=== PATIENT | male | born 1990 | race Caucasian/White ===

== ENCOUNTER 2023-09-13 20:32 | Inpatient (IN) ==
[2023-09-13 22:39] LABS: Basophils # (auto) 0.03 K/uL (0.00-0.20); Basophils % (auto) 0.4 %; Eosinophils # (auto) 0.12 K/uL (0.00-0.50); Eosinophils % (auto) 1.7 %; Hematocrit (blood only) 47.3 % (42.0-52.0); Hemoglobin 15.7 g/dl (14.0-18.0); Immature Granulocytes # (auto) 0.03 K/uL (0.01-0.20); Immature Granulocytes % (auto) 0.4 %; Lymphocytes # (auto) 0.52 K/uL (1.20-3.40); Lymphocytes % (auto) 7.5 %; Mean Corpuscular Hemoglobin 27.4 pg (25.0-34.0); Mean Corpuscular Hgb Conc 33.2 g/dL (32.0-36.0); Mean Corpuscular Volume 82.5 fL (80.0-100.0); Mean Platelet Volume 9.6 fL (9.4-12.4); Monocytes # (auto) 0.57 K/uL (0.11-0.59); Monocytes % (auto) 8.2 %; Neutrophils # (auto) 5.67 K/uL (1.40-6.50); Neutrophils % (auto) 81.8 %; Platelet Count 210 K/uL (130-400); RDW Coefficient of Variation 13.3 % (11.5-14.5); RDW Standard Deviation 39.2 fL (36.4-46.3); Red Blood Count 5.73 M/uL (4.70-6.10); White Blood Count 6.94 K/ul (4.8-10.8)
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
[2023-09-13 22:58] LABS: Albumin Globulin Ratio 1.5 (0.9-2); Albumin Level 4.5 gm/dl (3.4-5.0); BUN Creatinine Ratio 11.1 (10-20); Bilirubin,Total 0.8 mg/dl (0.2-1.0); Calcium 9.1 mg/dl (8.6-10.3); Creatinine Clr Calc Pharmacy 165.1 ml/min; Est GFR (African American) 128.7 ml/min; Potassium 3.8 mmol/L (3.5-5.1); Total Protein 7.5 gm/dl (6.0-8.3)
[2023-09-13] MEDS: SODIUM CHLORIDE 0.9% 1,000 ML IV ONE (23:18)
[2023-09-13] MEDS: HYDROmorphone INJ 1 MG/ML SYRINGE IV STA (23:18)
[2023-09-13] MEDS: ONDANSETRON INJ 2 MG/ML 2 ML VIAL IV STA (23:18)
--- NOTE | 2023-09-14 01:17 | Ultrasound Report ---
Exam(s): US GALLBLADDER EXAM: US Abdomen Limited, Right Upper Quadrant CLINICAL HISTORY: Reason for exam: abd pain fever. TECHNIQUE: Real-time ultrasound of the right upper quadrant with image documentation. COMPARISON: 09/13/2023. FINDINGS: Liver: 17.5 cm length. Echogenic/fatty. No mass. No intrahepatic bile duct dilation. Gallbladder: Distended gallbladder 12.1 cm length. Multiple small mobile gallstones and sludge. No gallbladder wall thickening or pericholecystic fluid. Cannot assess for sonographic Al's sign as patient was medicated. Common bile duct: Common bile duct 4.8 mm diameter. No dilatation. Pancreas: Obscured by bowel gas. Right kidney: Limited by bowel gas. 3.7 mm possible nonobstructing calculus in the lower pole. Poorly visualized probable cyst. IMPRESSION: No significant interval change. Poorly characterized right kidney. Electronically signed by: Asael Ramos M.D. 09/14/23 01:17 AM
[2023-09-14 01:36] LABS: Appearance Urine Clear (Clear); Bilirubin Urine Negative (Negative); Blood Urine Negative (Negative); Color Urine Yellow; Glucose Urine UA Negative (Negative); Ketones Urine Negative (Negative); Leukocyte Esterase Urine Negative (Negative); Nitrite Urine Negative (Negative); Protein Urine Negative (Negative); Specific Gravity Urine 1.013 (1.000-1.030); Urobilinogen Urine Negative (Negative); pH Urine 7.5 (4.5-7.5)
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
[2023-09-14] MEDS ORDERED: ONDANSETRON INJ 2 MG/ML 2 ML VIAL IV PRN (01:50)
[2023-09-14] MEDS: SODIUM CHLORIDE 0.9% 1,000 ML IV SCH (02:02)
[2023-09-14] MEDS: HYDROmorphone INJ 1 MG/ML SYRINGE IV STA (02:02)
[2023-09-14] MEDS: PIPERACILLIN/TAZOBACTAM 4.5 GM/100 ML BAG IV ONE (02:03)
[2023-09-14] MEDS: Patient's ALLERGY Info needs ENTERED STA (02:37)
[2023-09-14] MEDS: HYDROmorphone INJ 0.5 MG/0.5 ML SYR IV PRN ×2 (04:21→15:53)
[2023-09-14 07:05] LABS: Basophils # (auto) 0.03 K/uL (0.00-0.20); Basophils % (auto) 0.6 %; Eosinophils # (auto) 0.06 K/uL (0.00-0.50); Eosinophils % (auto) 1.2 %; Hematocrit (blood only) 43.7 % (42.0-52.0); Immature Granulocytes # (auto) 0.03 K/uL (0.01-0.20); Immature Granulocytes % (auto) 0.6 %; Lymphocytes # (auto) 0.47 K/uL (1.20-3.40); Lymphocytes % (auto) 9.3 %; Mean Corpuscular Hemoglobin 27.9 pg (25.0-34.0); Mean Corpuscular Hgb Conc 34.3 g/dL (32.0-36.0); Mean Corpuscular Volume 81.2 fL (80.0-100.0); Mean Platelet Volume 9.4 fL (9.4-12.4); Monocytes # (auto) 0.75 K/uL (0.11-0.59); Monocytes % (auto) 14.8 %; Neutrophils # (auto) 3.74 K/uL (1.40-6.50); Neutrophils % (auto) 73.5 %; Platelet Count 185 K/uL (130-400); RDW Coefficient of Variation 13.2 % (11.5-14.5); RDW Standard Deviation 38.6 fL (36.4-46.3); Red Blood Count 5.38 M/uL (4.70-6.10); White Blood Count 5.08 K/ul (4.8-10.8)
[2023-09-14 07:18] LABS: Albumin Globulin Ratio 1.9 (0.9-2); Albumin Level 4.1 gm/dl (3.4-5.0); BUN Creatinine Ratio 10.6 (10-20); Calcium 8.5 mg/dl (8.6-10.3); Creatinine Clr Calc Pharmacy 176.5 ml/min; Est GFR (African American) 131.8 ml/min; Est GFR (Non-African American) 113.7 ml/min; Globulin 2.2 gm/dl (2.5-4.0); Total Protein 6.3 gm/dl (6.0-8.3)
[2023-09-14] MEDS: PIPERACILLIN/TAZOBACTAM 4.5 GM in DEXTROSE 5% MINI-B 100 ML IV SCH (08:23)
[2023-09-14] MEDS: ACETAMINOPHEN 1,000 MG/100 ML VIAL IV PRN (08:33)
[2023-09-14] MEDS: DULoxetine HCL 60 MG CAP PO SCH (08:37)
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
--- NOTE | 2023-09-14 12:45 | Magnetic Resonance Report ---
MRCP CLINICAL HISTORY: Elevated liver function tests. TECHNIQUE: Utilizing a 1.5 Anyi magnet and dedicated coil, multiplanar, multiecho imaging of the [facility] er abdomen was performed utilizing heavily T2 weighted pulsing sequences without IV contrast. COMPARISON STUDY: Right upper quadrant ultrasound September 13, 2023. FINDINGS: Small pericardial effusion is incidentally noted. There is trace perihepatic ascites. No bi liary ductal dilatation is present. Common bile duct measures 6 mm in caliber. No common bile duct ca lculi are identified although this exam is mildly compromised by motion artifact. The gallbladder is moderately distended. Multiple gallstones within the gallbladder are noted. There is mild gallbladder wall thickening with trace pericholecystic fluid. Pancreas is unremarkable on unenhanced exam. 1.1 c m T2 hyperintense right renal lesion is suboptimally assessed on unenhanced exam but likely reflects a cyst. Borderline splenomegaly. Adrenal glands are unremarkable. Caliber and wall thickness of visua lized small and large bowel are normal. IMPRESSION: 1. Cholelithiasis. Moderate gallbladder distention with mild gallbladder wall thickening and trace pe richolecystic fluid. Acute cholecystitis cannot be excluded. 2. No biliary ductal dilatation. No common bile duct calculi identified although exam mildly compromi sed by motion artifact. 3. Small pericardial effusion. ACT 112: Negative or not required by law. Electronically signed by: Jonel Carmona M.D. 09/14/2023 12:43 PM
--- NOTE | 2023-09-14 13:10 | Surgery Progress Note ---
Date of Service September 14, 2023 Assessment & Plan (1) Cholelithiases: Plan: MRCP images and results personally viewed by myself He has multiple stones toward the neck of the gallbladder Will plan on repeating LFT's this evening Tentatively plan on lap santosh tomorrow (2) Elevated LFTs: Admission and Anticipated Discharge Date Admission Date: September 14, 2023 Subjective Pt seen and examined. Still with RUQ pain this AM. Afebrile. No N/V. Review of Systems Constitutional: no fever and no chills Eyes: no worsening vision Gastrointestinal: + abdominal pain; no nausea, no vomiting , no constipation and no diarrhea/loose stools Physical Exam Constitutional: WD/WN, vitals as above Gastrointestinal (Abdomen): Inspection/Auscultation: abdomen normal to inspection; abdomen not distended Percussion/Palpation: + abdomen tender (RUQ) and abdomen soft; no guarding, abdomen not rigid and no hernia Results & Data Vital Signs (Past 12 Hours) Vital Signs Temp Pulse Pulse Resp BP BP Pulse Ox 09/14/23 07:49 37.0 C 103 H 16 158/91 H 96 09/14/23 04:05 36.8 C 99 H 16 165/100 H 95 09/14/23 02:30 82 26 H 157/92 H 98 09/14/23 02:00 92 H 25 H 185/101 H 98 09/14/23 01:18 87 09/14/23 01:17 87 24 136/68 92 O2 Del Method O2 Flow Rate 09/14/23 07:49 Room Air 09/14/23 04:05 Room Air 09/14/23 02:30 Nasal Cannula 3 09/14/23 02:00 Nasal Cannula 3 09/14/23 01:18 09/14/23 01:17 PG Care Time/CCT Total # of Minutes Spent Total Time Spent with Patient: Total time spent is greater than 50% in coordination of care (as documented) at patient's floor/unit and/or counseling patient: Coding Level of Care Code 31333 SUB INP/OBS CARE 07/28MIN Diagnoses Cholelithiases K80.00 Biliary obstruction: without biliary obstruction Cholecystitis acuity: acute Cholecystitis presence: with cholecystitis Cholelithiasis location: gallbladder Elevated LFTs R79.89 (1) Cholelithiases Biliary obstruction: without biliary obstruction Cholecystitis acuity: acute Cholecystitis presence: with cholecystitis Cholelithiasis location: gallbladder Qualified Code(s): K80.00 - Calculus of gallbladder with acute cholecystitis without obstruction
[2023-09-14] MEDS: LORazepam 1 MG TAB PO PRN (15:01)
[2023-09-14 18:57] LABS: Albumin Level 4.1 gm/dl (3.4-5.0); Bilirubin Direct 0.5 mg/dl (0-0.2); Bilirubin,Total 1.4 mg/dl (0.2-1.0); Total Protein 6.5 gm/dl (6.0-8.3)
[2023-09-15 06:42] LABS: Basophils # (auto) 0.02 K/uL (0.00-0.20); Basophils % (auto) 0.7 %; Eosinophils % (auto) 3.7 %; Hemoglobin 14.6 g/dl (14.0-18.0); Immature Granulocytes # (auto) 0.01 K/uL (0.01-0.20); Immature Granulocytes % (auto) 0.4 %; Lymphocytes # (auto) 0.65 K/uL (1.20-3.40); Lymphocytes % (auto) 23.9 %; Mean Corpuscular Hemoglobin 27.7 pg (25.0-34.0); Mean Corpuscular Hgb Conc 33.2 g/dL (32.0-36.0); Mean Corpuscular Volume 83.5 fL (80.0-100.0); Mean Platelet Volume 9.6 fL (9.4-12.4); Monocytes # (auto) 0.54 K/uL (0.11-0.59); Monocytes % (auto) 19.9 %; Neutrophils % (auto) 51.4 %; Platelet Count 166 K/uL (130-400); RDW Coefficient of Variation 13.4 % (11.5-14.5); RDW Standard Deviation 41.1 fL (36.4-46.3); Red Blood Count 5.27 M/uL (4.70-6.10); White Blood Count 2.72 K/ul (4.8-10.8)
[2023-09-15 07:13] LABS: Albumin Level 3.8 gm/dl (3.4-5.0); BUN Creatinine Ratio 8.1 (10-20); Bilirubin Direct 0.4 mg/dl (0-0.2); Bilirubin,Total 1.2 mg/dl (0.2-1.0); Calcium 8.4 mg/dl (8.6-10.3); Creatinine Clr Calc Pharmacy 174.4 ml/min; Est GFR (African American) 131.1 ml/min; Est GFR (Non-African American) 113.1 ml/min; Potassium 3.8 mmol/L (3.5-5.1); Total Protein 6.2 gm/dl (6.0-8.3)
[2023-09-15] MEDS ORDERED: fentaNYL citrate PF 100 MCG/2 ML VIAL ONE (07:55)
[2023-09-15] MEDS ORDERED: ONDANSETRON INJ 2 MG/ML 2 ML VIAL ONE (07:55)
[2023-09-15] MEDS ORDERED: DEXAMETHASONE SOD INJ 4 MG/ML VIAL ONE (07:55)
[2023-09-15] MEDS ORDERED: PROPOFOL IV EMULSION 10 MG/ML 20 ML VIAL IV ONE ×2 (07:55→09:26)
[2023-09-15] MEDS ORDERED: LIDOCAINE 2% 2 ML VIAL/AMP(20MG/ML) INFIL ONE (07:55)
[2023-09-15] MEDS ORDERED: ROCURONIUM BROMIDE 10 MG/ML 5 ML VIAL IV ONE (07:55)
[2023-09-15] MEDS ORDERED: MIDAZOLAM HCL 1 MG/ML 2ML VIAL ONE (07:56)
--- NOTE | 2023-09-15 08:10 | Surgery Progress Note ---
Date of Service September 15, 2023 Assessment & Plan (1) Cholelithiases: Plan: His LFT's have been trending down and MRCP negative for choledocholithiasis Will proceed with laparoscopic cholecystectomy, possible open, possible IOC today Consent was obtained, risks discussed including bleeding, infection, bile leak, ductal injury (2) Acute cholecystitis: Admission and Anticipated Discharge Date Admission Date: September 14, 2023 Subjective Pt seen and examined. Still with RUQ pain. Afebrile. No N/V. Review of Systems Constitutional: no fever and no chills Physical Exam Constitutional: WD/WN, vitals as above Gastrointestinal (Abdomen): Inspection/Auscultation: abdomen normal to inspection; abdomen not distended Percussion/Palpation: + abdomen tender (RUQ) and abdomen soft; no guarding Results & Data Vital Signs (Past 12 Hours) Vital Signs Temp Pulse Resp BP Pulse Ox O2 Del Method 09/15/23 07:46 36.5 C 72 20 158/103 H 96 Room Air 09/15/23 07:33 36.6 C 69 16 142/89 H 97 Room Air 09/14/23 20:16 37.2 C 84 16 146/79 H 96 Room Air PG Care Time/CCT Total # of Minutes Spent Total Time Spent with Patient: Total time spent is greater than 50% in coordination of care (as documented) at patient's floor/unit and/or counseling patient: Coding Level of Care Code 06001 SUB INP/OBS CARE 07/28MIN Diagnoses Cholelithiases K80.00 Biliary obstruction: without biliary obstruction Cholecystitis acuity: acute Cholecystitis presence: with cholecystitis Cholelithiasis location: gallbladder Acute cholecystitis K81.0 (1) Cholelithiases Biliary obstruction: without biliary obstruction Cholecystitis acuity: acute Cholecystitis presence: with cholecystitis Cholelithiasis location: gallbladder Qualified Code(s): K80.00 - Calculus of gallbladder with acute cholecystitis without obstruction
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
[2023-09-15] MEDS ORDERED: ePHEDrine sulfate 50 MG/ML AMP IV PRN (08:17)
[2023-09-15] MEDS ORDERED: ATROPINE SULFATE 0.1 MG/ML 10ML SYR IV PRN (08:17)
[2023-09-15] MEDS ORDERED: ONDANSETRON INJ 2 MG/ML 2 ML VIAL IV PRN (08:17)
--- NOTE | 2023-09-15 09:05 | Communication Note ---
Date of Service: September 15, 2023 Attempted to round on patient x 2. He is out of room. MRCP reviewed. Negative, No biliary ductal dilatation. No common bile duct calculi identified although exam mildly compromised by motion artifact. Please recall GI as needed. May trend LFTs after CCY.. If an IOC is completed and positive, he will need to be transferred to a facility [facility] with biliary capability. Thank you for allowing us to participate in the care of this patient. Please call with any acute changes, questions or concerns. Please see addendum below with additional recommendation from my supervising physician.
[2023-09-15] MEDS ORDERED: GLYCOPYRROLATE 0.2 MG/ML VIAL ONE (09:11)
[2023-09-15] MEDS ORDERED: ePHEDrine sulfate 50 MG/5 ML SYR ONE (09:11)
[2023-09-15] MEDS ORDERED: SUGAMMADEX SODIUM 200 MG/2 ML VIAL IV ONE (09:38)
[2023-09-15] MEDS ORDERED: KETOROLAC 30 MG/ML VIAL ONE (09:50)
[2023-09-15] MEDS: BUPIVACAINE/EPINEPHRINE 0.5% MPF 1:200,000 30 ML VIAL ONE (09:54)
--- NOTE | 2023-09-15 09:58 | Post Operative Brief Note ---
PG Immediate Post Op with CF Date of Surgery September 15, 2023 Pre & Post Diagnosis Operation Date: 09/15/23 08:20 Pre-Op Diagnosis: Cholelithiasis Post-Op Diagnosis: Acute cholecystitis I identified the patient and participated in the time-out.: Yes Procedure Operation Date: 09/15/23 08:20 Actual Procedures p Laparoscopic Cholecystectomy(Not Applicable) - Celio Waters DO Surgeon Celio Waters DO Frame Table Operator Helper Hoa Tapia PA-C Estimated Blood Loss 20 Findings See Below Acutely inflamed, dilated gallbladder consistent with acute cholecystititis Specimens Specimen Description: A. Gallbladder Anesthesia Type General Complications none Disposition Disposition: Recovery Room
--- NOTE | 2023-09-15 10:07 | Operative Report ---
PG Post Operative Report Pre & Post Diagnosis Operation Date: 09/15/23 08:20 Pre-Op Diagnosis: Cholelithiasis Post-Op Diagnosis: Acute cholecystitis I identified the patient and participated in the time-out.: Yes Procedure Operation Date: 09/15/23 08:20 Actual Procedures p Laparoscopic Cholecystectomy(Not Applicable) - Celio Waters DO Surgeon Celio Waters DO Farmworker [employer] Hoa Tapia PA-C Estimated Blood Loss 20 Findings See Below Acutely inflamed, dilated gallbladder consistent with acute cholecystititis Fluids see anesthesia record Specimens Gallbladder to pathology Drains None Anesthesia Type General Complications none Disposition Disposition: Recovery Room Indications 33 yo male with acute cholecystitits Description of Procedure The patient was brought to the operating room and placed in the supine position with both arms extended. At this time he underwent general endotracheal anesthesia without any problems. He was given appropriate pre-operative antibiotics. His abdomen prepped and draped in the usual sterile fashion. A timeout was called, the procedure was verified as Laparoscopic cholecystectomy, possible open, possible intra-operative cholangiogram. Surgical, nursing and anesthesia teams agreed and the procedure was begun. After injection of 0.25% Marcaine with epinephrine, a supraumbilical vertical incision was made and carried down to the fascia using S-retractors. The abdominal wall was then elevated with towel clamps and abdomen entered using the Veress needle confirming position using the saline drop test. Pneumoperitoneum was established. 5mm trocar was placed. Laparoscope was introduced. No injury from entry into the abdomen was visualized after inspection of the abdomen. Three further ports were placed under direct visualization. One 11mm in the subxiphoid region and two 5mm in the RUQ. At this time the abdomen was inspected and the gallbladder identified. The gallbladder fundus was grasped and retracted cephalad. The gallbladder infundibulum was then grasped and retracted laterally. The gallabladder itself was dilated and inflamed consistent with acute cholecystitis. The cystic duct and cystic artery were then identified and skeletonized. The critical view of safety was obtained. They were both then clipped twice proximally and once distally and then divided using scissors. The gallbladder was then taken off of the liver bed using electrocautery and placed in an endocatch bag and removed from the subxiphoid port. The liver bed was then inspected and no bile leak or bleeding was evident. The subxiphoid port was then closed using 0-Vicryl using the suture passer. The trocars were then removed under direct visualization and no bleeding was present. Abdomen was desufflated. The skin was then closed using 4-0 Monocryl in a subcuticular fashion. Surgical glue was applied. Needle and sponge counts were correct x 2. At this time the patient was awoken from anesthesia and extubated having remained stable throughout the entire case. The patient was then transported to PACU in stable condition. The physician pathologist assistant was present and scrubbed for the entire procedure. She was essential in positioning, prepping and draping the patient, retraction and exposure, driving the laparoscope, closure of the incisions, placement of the dressings. I attest to the content of the Intraoperative Record and any orders documented therein. Any exceptions are noted below.
[2023-09-15] MEDS: fentaNYL citrate PF 100 MCG/2 ML VIAL IV PRN (10:14)
[2023-09-15] MEDS: HYDROmorphone INJ 0.5 MG/0.5 ML SYR IV STA (10:44)
[2023-09-15] MEDS: ACETAMINOPHEN 1,000 MG/100 ML VIAL IV STA (11:02)
--- NOTE | 2023-09-15 11:26 | Anesthesiology Progress Note ---
Date of Service September 15, 2023 Anesthesia Post Procedure Vital Signs Vital Signs: Temp Pulse Pulse Pulse Resp BP Pulse Ox 09/15/23 11:10 80 20 163/92 H 93 09/15/23 11:00 89 20 162/85 H 93 09/15/23 10:50 36.9 C 91 H 18 171/92 H 92 09/15/23 10:40 99 H 18 155/89 H 94 09/15/23 10:30 96 H 18 150/71 H 93 09/15/23 10:20 95 H 20 163/80 H 92 09/15/23 10:10 104 H 20 150/77 H 94 09/15/23 10:08 36.2 C L 106 H 18 174/86 H 98 09/15/23 07:46 36.5 C 72 20 158/103 H 96 09/15/23 07:33 36.6 C 69 16 142/89 H 97 09/14/23 20:16 37.2 C 84 16 146/79 H 96 09/14/23 15:39 36.6 C 99 H 16 143/79 H 95 O2 Del Method O2 Flow Rate 09/15/23 11:10 Nasal Cannula 2 09/15/23 11:00 Nasal Cannula 2 09/15/23 10:50 Nasal Cannula 2 09/15/23 10:40 Nasal Cannula 2 09/15/23 10:30 Oxymask 2 09/15/23 10:20 Oxymask 2 09/15/23 10:10 Oxymask 6 09/15/23 10:08 Oxymask 6 09/15/23 07:46 Room Air 09/15/23 07:33 Room Air 09/14/23 20:16 Room Air 09/14/23 15:39 Room Air Pain Intensity Right Upper Abdomen: Pain Intensity: 6 Transfer of Care Handoff Completed per policy Notes Mental Status: alert / awake / arousable Patient Amnestic to Procedure: Yes Nausea / Vomiting: adequately controlled Pain: adequately controlled Airway Patency, RR, SpO2: stable & adequate BP & HR: stable & adequate Hydration State: stable & adequate Anesthetic Complications: no major complications apparent and Pt Satisfied with anesthetic care
[2023-09-15] MEDS ORDERED: oxyCODONE HCL IR 5 MG TAB (IMMEDIATE RELEASE) PO PRN (13:13)
[2023-09-15] MEDS: HYDROmorphone INJ 0.5 MG/0.5 ML SYR IV PRN (15:04)
[2023-09-15] MEDS: oxyCODONE HCL IR 5 MG TAB (IMMEDIATE RELEASE) PO PRN (17:37)
[2023-09-15] MEDS: ACETAMINOPHEN 500 MG TAB PO PRN (20:31)
[2023-09-16 06:28] LABS: Basophils # (auto) 0.02 K/uL (0.00-0.20); Basophils % (auto) 0.4 %; Eosinophils # (auto) 0.04 K/uL (0.00-0.50); Eosinophils % (auto) 0.7 %; Hematocrit (blood only) 40.5 % (42.0-52.0); Hemoglobin 13.7 g/dl (14.0-18.0); Immature Granulocytes # (auto) 0.01 K/uL (0.01-0.20); Immature Granulocytes % (auto) 0.2 %; Lymphocytes # (auto) 0.83 K/uL (1.20-3.40); Mean Corpuscular Hgb Conc 33.8 g/dL (32.0-36.0); Mean Corpuscular Volume 82.7 fL (80.0-100.0); Mean Platelet Volume 9.6 fL (9.4-12.4); Monocytes # (auto) 0.59 K/uL (0.11-0.59); Monocytes % (auto) 10.6 %; Neutrophils # (auto) 4.06 K/uL (1.40-6.50); Neutrophils % (auto) 73.1 %; Platelet Count 197 K/uL (130-400); RDW Coefficient of Variation 13.2 % (11.5-14.5); RDW Standard Deviation 39.5 fL (36.4-46.3); White Blood Count 5.55 K/ul (4.8-10.8)
[2023-09-16 07:02] LABS: Albumin Globulin Ratio 1.7 (0.9-2); Albumin Level 3.8 gm/dl (3.4-5.0); BUN Creatinine Ratio 15.8 (10-20); Bilirubin,Total 0.6 mg/dl (0.2-1.0); Calcium 8.3 mg/dl (8.6-10.3); Creatinine Clr Calc Pharmacy 197.4 ml/min; Globulin 2.3 gm/dl (2.5-4.0); Potassium 3.9 mmol/L (3.5-5.1); Total Protein 6.1 gm/dl (6.0-8.3)
--- NOTE | 2023-09-16 08:31 | Surgery Progress Note ---
Date of Service September 16, 2023 Assessment & Plan (1) Acute cholecystitis: Plan: POD 1 lap santoshnathan roca. reg diet no n/v , fever , chills pain controlled VSS WBC wnl LFT down trending Verbalized understanding of d/c instructions and f/u appt. All questions answered, stable to d/c Admission and Anticipated Discharge Date Admission Date: September 14, 2023 Supervising Physician Co-Signing Physician Notes Tolerating a diet LFT's downtrending He can be discharged today Subjective pt reports soreness to midline upper incision tolerating reg diet denies n/v f/c + flatus Review of Systems Constitutional: no fever and no chills Respiratory: no dyspnea Cardiovascular: no chest pain Gastrointestinal: + abdominal pain (soreness); no nausea a nd no vomiting Musculoskeletal: no muscle weakness Physical Exam Physical Exam: alert oriented pleasant Constitutional: well developed, cooperative and comfortable; no acute distress Respiratory: normal respiratory effort and able to speak in complete sentences; no respiratory distress Cardiovascular: Rate/Rhythm: regular rate Gastrointestinal (Abdomen): Inspection/Auscultation: + abdominal surgical incision (2x2 changed and tegaderm to right port sites ) Percussion/Palpation: + abdomen tender and abdomen soft; no guarding Musculoskeletal: no cyanosis or clubbing, extremities motor strength 5/5 Psychiatric: A+Ox3, euthymic affect Results & Data Vital Signs (Past 12 Hours) Vital Signs Temp Pulse Resp BP Pulse Ox O2 Del Method 09/16/23 07:05 97.9 F 68 17 143/80 H 98 Room Air 09/16/23 03:23 97.9 F 67 16 147/88 H 95 Room Air 09/15/23 23:51 71 18 151/76 H 95 Room Air 09/15/23 23:45 98.1 F 72 16 182/97 H 95 Room Air Results Complete Blood Count Results: RBC 4.90 M/uL (4.70-6.10) 09/16/23 WBC 5.55 K/ul (4.8-10.8) 09/16/23 Hgb 13.7 g/dl (14.0-18.0) L 09/16/23 Hct 40.5 % (42.0-52.0) L 09/16/23 Plt Count 197 K/uL (130-400) 09/16/23 Results CMP Results: Na 138 mmol/L (136-145) 09/16/23 K 3.9 mmol/L (3.5-5.1) 09/16/23 Cl 105 mmol/L (98-107) 09/16/23 CO2 28 mmol/L (21-32) 09/16/23 Anion Gap 5 (3-11) 09/16/23 BUN 12 mg/dl (6-23) 09/16/23 Creatinine 0.76 mg/dl (0.6-1.4) 09/16/23 Estimated GFR ( Amer) 138.0 ml/min 09/16/23 Estimated GFR (Non-Af Amer) 119.0 ml/min 09/16/23 BUN/Creatinine Ratio 15.8 (10-20) 09/16/23 Glu 112 mg/dl (70-99(Fasting)) H 09/16/23 Ca 8.3 mg/dl (8.6-10.3) L 09/16/23 Total Bilirubin 0.6 mg/dl (0.2-1.0) 09/16/23 Direct Bilirubin 0.4 mg/dl (0-0.2) H 09/15/23 AST 47 U/L (13-39) H 09/16/23 ALT 85 U/L (7-52) H 09/16/23 Alkaline Phosphatase 121 U/L (34-104) H 09/16/23 TP 6.1 gm/dl (6.0-8.3) 09/16/23 Albumin 3.8 gm/dl (3.4-5.0) 09/16/23 Globulin 2.3 gm/dl (2.5-4.0) L 09/16/23 Albumin/Globulin Ratio 1.7 (0.9-2) 09/16/23 PG Care Time/CCT Total # of Minutes Spent Total Time Spent with Patient: Total time spent is greater than 50% in coordination of care (as documented) at patient's floor/unit and/or counseling patient: Coding Level of Care Code 71638 Post Operative Follow-Up Diagnoses Acute cholecystitis K81.0
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
== END 2023-09-16 11:39 | disposition home or self-care (01) | DRG 419 ==
LOC: ED 20:32 → 3E 09-14 01:55